=== PATIENT | male | born 1945 | race Caucasian/White ===

== ENCOUNTER 2016-05-28 11:32 | Emergency (ER) | payer MEDICARE, OTHER ==
[~2016-05-28] VITALS: Ht 175.3 cm; Wt 99.8 kg
[~2016-05-28 11:32] MED LIST: ACET65TA OR; AMLO10TAB PO; ASPI325T OR; HYDR25TA6 PO; LISI40TA PO; PERC5TAB8 OR; PERC7.5T8 OR; SIMV80TA PO; TYL325 PO; glucosamine PO; tramadol PO
[2016-05-28] MEDS ORDERED: SILD20TA11 PO (11:46)
[2016-05-28] MEDS ORDERED: B-12500T2 PO (11:46)
[2016-05-28] MEDS ORDERED: ATOR1TAB21 PO (11:46)
[2016-05-28] MEDS ORDERED: ASPI81TA85 PO (11:46)
[2016-05-28] MEDS ORDERED: VITA-176 PO (11:46)
[2016-05-28] MEDS ORDERED: ASPIRIN 81 MG CHEW TABLET PO ONE (12:15)
[2016-05-28] MEDS ORDERED: NS 500 ML IV ONE (12:15)
[2016-05-28 12:24] LABS: ANION GAP 6 MEQ/L (8-16); BLOOD UREA NITROGEN 25 MG/DL (7-18); CALCIUM LEVEL 9.4 MG/DL (8.8-10.2); CARBON DIOXIDE LEVEL 27 MEQ/L (21-32); CHLORIDE LEVEL 101 MEQ/L (98-107); FREE T4 1.11 NG/DL (0.76-1.46); GLOMERULAR FILTRATION RATE > 60.0 (>49); GLUCOSE, FASTING 107 MG/DL (80-110); POTASSIUM SERUM 4.5 MEQ/L (3.5-5.1); SODIUM LEVEL 134 MEQ/L (136-145)
[2016-05-28 12:29] LABS: BASO % 0.4 % (0.0-1.0); EOS # 0.1 K/mm3 (0.0-0.50); EOS % 1.3 % (0.0-3.0); LARGE UNSTAINED CELL # 0.1 K/mm3 (0.0-0.4); LARGE UNSTAINED CELL % 1.6 % (0.0-4.0); LYMPH # 1.1 K/mm3 (1.5-4.5); MEAN CORPUSCULAR HEMOGLOBIN 30.1 pg (27.0-33.0); MEAN CORPUSCULAR HGB CONC 32.7 g/dl (32.0-36.5); MEAN CORPUSCULAR VOLUME 91.9 fl (80.0-96.0); MONO # 0.4 K/mm3 (0.0-0.8); MONO % 6.1 % (0.0-5.0); NEUTROPHILS # 4.5 K/mm3 (1.8-7.7); NEUTROPHILS % 73.6 % (36.0-66.0); PLATELET COUNT, AUTOMATED 209 k/mm3 (150-450); RED CELL DISTRIBUTION WIDTH 13.2 % (11.5-14.5); WHITE BLOOD COUNT 6.1 K/mm3 (4.0-10.0)
--- NOTE | 2016-05-28 13:31 | REP ---
PORTABLE CHEST: AP portable view of the chest is performed and compared to a prior study of 12/03/2013. The heart is upper limits of normal in size. There is no acute infiltrate. Metallic prosthesis is seen in the proximal humerus bilaterally. IMPRESSION: No acute infiltrate. Signed by Shad Francisco MD 05/28/2016 04:40 P
[2016-05-28] MEDS ORDERED: ELIQ5TAB PO (14:57)
[2016-05-28] MEDS ORDERED: APIXABAN 5 MG TAB (ELIQUIS) PO ONE (15:00)
[2016-05-28 15:15] VITALS: BP 120/88
--- NOTE | 2016-05-29 21:34 | ECGEPIP ---
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
== END 2016-05-28 15:26 | disposition home or self-care (01) ==
LOC: M ED 12:41
DX: I48.91 Unspecified atrial fibrillation (principal); R06.02 Shortness of breath

== ENCOUNTER → 2017-05-06 | Outpatient (CLI) | payer MEDICARE ==
[2017-05-06 12:00] LABS: APPEARANCE, URINE CLEAR (CLEAR); BACTERIA, URINE AUTO NEGATIVE (NEGATIVE); BILIRUBIN, URINE AUTO NEGATIVE (NEGATIVE); BLOOD, URINE BLOOD NEGATIVE (NEGATIVE); COLOR, URINE STRAW (YELLOW); GLUCOSE, URINE (UA) AUTO NEGATIVE (NEGATIVE); KETONE, URINE AUTO NEGATIVE (NEGATIVE); LEUKOCYTE ESTERASE, URINE AUTO NEGATIVE (NEGATIVE); NITRITE, URINE AUTO NEGATIVE (NEGATIVE); PROTEIN, URINE AUTO NEGATIVE (NEGATIVE); RBC, URINE AUTO 0 /HPF (0-3); SQUAMOUS EPITHELIAL CELL UR AU 0 /HPF (0-6); UROBILINOGEN, URINE AUTO 0.2 mg/dL (0.0-2.0); WBC, URINE AUTO 0 /HPF (0-3)
[2017-05-06 12:05] LABS: HEMATOCRIT 44.7 % (42.0-52.0); HEMOGLOBIN 14.7 g/dl (14.0-18.0); MEAN CORPUSCULAR HEMOGLOBIN 29.5 pg (27.0-33.0); MEAN CORPUSCULAR HGB CONC 32.9 g/dl (32.0-36.5); MEAN CORPUSCULAR VOLUME 89.8 fl (80.0-96.0); PLATELET COUNT, AUTOMATED 207 10^3/uL (150-450); RED BLOOD COUNT 4.98 10^6/uL (4.30-6.10); RED CELL DISTRIBUTION WIDTH 13.3 % (11.5-14.5); WHITE BLOOD COUNT 6.8 10^3/uL (4.0-10.0)
[2017-05-06 12:11] LABS: INR 2.13; PROTHROMBIN TIME 24.6 SECONDS (12.4-14.5)
[2017-05-06 13:43] LABS: ALBUMIN 4.4 GM/DL (3.2-5.2); ALBUMIN/GLOBULIN RATIO 1.52 (1.00-1.93); ALKALINE PHOSPHATASE 71 U/L (45-117); ALT/SGPT 27 U/L (12-78); ANION GAP 9 MEQ/L (8-16); AST/SGOT 12 U/L (7-37); BILIRUBIN,TOTAL 0.6 MG/DL (0.2-1.0); BLOOD UREA NITROGEN 21 MG/DL (7-18); CALCIUM LEVEL 9.5 MG/DL (8.8-10.2); CARBON DIOXIDE LEVEL 26 MEQ/L (21-32); CHLORIDE LEVEL 102 MEQ/L (98-107); CREATININE FOR GFR 1.02 MG/DL (0.70-1.30); GLOMERULAR FILTRATION RATE > 60.0 (>49); GLUCOSE, FASTING 92 MG/DL (70-100); POTASSIUM SERUM 4.2 MEQ/L (3.5-5.1); SODIUM LEVEL 137 MEQ/L (136-145); TOTAL PROTEIN 7.3 GM/DL (6.4-8.2)
[2017-05-06 19:28] LABS: ERYTHROCYTE SEDIMENTATION RATE 3 mm/hr (0-20)
== END ==
LOC: M ADMPAT 10:27
DX: Z01.818 Encounter for other preprocedural examination (principal); M17.12 Unilateral primary osteoarthritis, left knee; I10 Essential (primary) hypertension; E78.00 Pure hypercholesterolemia, unspecified; I48.91 Unspecified atrial fibrillation; Z79.899 Other long term (current) drug therapy
CPT/HCPCS: 71046

== ENCOUNTER 2018-12-09 08:45 | Day surgery (SDC) | payer OTHER ==
[~2018-12-09] VITALS: Ht 172.7 cm; Wt 91.6 kg
[~2018-12-09 08:45] MED LIST changes: +ACET-839 PO; +AMLO10TA5 PO; +ASPI81TA85 PO; +ATOR1TAB21 PO; +B-12500T2 PO; +COUM1TAB17 PO; +DILT180C78 PO; +ELIQ5TAB PO; +LOVE0.8I SC; +NS 1,000 ML IV ONE; +PERC5TAB12 PO; +SILD20TA11 PO; +TYLE500T78 PO; +VITA-176 PO
[2018-12-09] MEDS ORDERED: PROPOFOL 200 MG/20 ML VIAL As Ordered ONE (09:51)
[2018-12-09] MEDS ORDERED: LIDOCAINE 2% INJ 100 MG/5 ML SDV (FOR ANES.) As Ordered ONE (09:51)
[2018-12-09] MEDS ORDERED: PHENYLephrine HCL 500 MCG/5 ML (100MCG/ML) SYRINGE (J2370) As Ordered ONE (10:30)
--- NOTE | 2018-12-09 10:53 | ROOR ---
Patient Name: Yosef Rueda Procedure Date: 12/09/2018 10:15 AM Date of : 1945 Age: 73 Room: [facility] Gender: Male Note Status: Finalized Procedure: Colonoscopy Indications: High risk colon cancer surveillance: Personal history of colonic polyps Providers: DO Sanaz Lind MD: [facility], Admin. Requesting Provider: Medicines: Propofol per Anesthesia Complications: No immediate complications. Procedure: Pre-Anesthesia Assessment: - Prior to the procedure, a History and Physical was performed, and patient medications and allergies were reviewed. The patient is competent. The risks and benefits of the procedure and the sedation options and risks were discussed with the patient. All questions were answered and informed consent was obtained. Patient identification and proposed procedure were verified by the physician, the nurse, the anesthesiologist and the r and d lab technician in the endoscopy suite. Mental Status Examination: alert and oriented. Airway Examination: normal oropharyngeal airway and neck mobility. Respiratory Examination: clear to auscultation. CV Examination: normal. Prophylactic Antibiotics: The patient does not require prophylactic antibiotics. Prior Anticoagulants: The patient has taken no previous anticoagulant or antiplatelet agents. ASA Grade Assessment: II - A patient with mild systemic disease. After reviewing the risks and benefits, the patient was deemed in satisfactory condition to undergo the procedure. The anesthesia plan was to use monitored anesthesia care (MAC). Immediately prior to administration of medications, the patient was re-assessed for adequacy to receive sedatives. The heart rate, respiratory rate, oxygen saturations, blood pressure, adequacy of pulmonary ventilation, and response to care were monitored throughout the procedure. The physical status of the patient was re-assessed after the procedure. The Colonoscope was introduced through the anus and advanced to the cecum, identified by appendiceal orifice and ileocecal valve. The colonoscopy was performed without difficulty. The patient tolerated the procedure well. Findings: A few small and large-mouthed diverticula were found in the sigmoid colon. Two hyperplastic polyps were found in the descending colon and transverse colon. The polyps were less than 5 mm in size. These polyps were removed with a hot snare. Resection and retrieval were complete. Estimated blood loss was minimal. Non-bleeding internal hemorrhoids were found during retroflexion. The hemorrhoids were small and Grade I (internal hemorrhoids that do not prolapse). The exam was otherwise without abnormality. Impression: - Diverticulosis in the sigmoid colon. - Two less than 5 mm polyps in the descending colon and in the transverse colon, removed with a hot snare. Resected and retrieved. - Non-bleeding internal hemorrhoids. - The examination was otherwise normal. Recommendation: - Patient has a contact number available for emergencies. The signs and symptoms of potential delayed complications were discussed with the patient. Return to normal activities tomorrow. Written discharge instructions were provided to the patient. - Await pathology results. - Repeat colonoscopy in 5-10 years for surveillance based on pathology results. - Return to my office as previously scheduled. Shad Dalton DO 12/09/2018 10:53:28 AM Electronically signed by Shad Dalton DO Number of Addenda: 0 Note Initiated On: 12/09/2018 10:15 AM Estimated Blood Loss: Estimated blood loss was minimal.
[2018-12-09 11:24] VITALS: BP 117/86
== END 2018-12-09 11:26 | disposition home or self-care (01) ==
LOC: M OPP 08:45
PROVIDERS: ATTEND Surgery
DX: Z12.11 Encounter for screening for malignant neoplasm of colon (principal); Z86.010 Personal history of colon polyps; K64.0 First degree hemorrhoids; D12.4 Benign neoplasm of descending colon; D12.3 Benign neoplasm of transverse colon; K57.30 Diverticulosis of large intestine without perforation or abscess without bleeding; I48.91 Unspecified atrial fibrillation; G47.30 Sleep apnea, unspecified; Z79.899 Other long term (current) drug therapy; Z87.891 Personal history of nicotine dependence
CPT/HCPCS: 45385; 88305; J2370

== ENCOUNTER → 2018-12-30 | Outpatient (CLI) | payer OTHER ==
[~2018-12-30] MED LIST changes: -NS 1,000 ML IV ONE
--- NOTE | 2018-12-31 19:35 | SLEEPCENT ---
DATE OF PROCEDURE: 12/30/2018 ORDERED BY: PILLO Negron Nocturnal polysomnography was performed for evaluation of sleep physiology. 8 hours and 48 minutes of data were reviewed. There were 331.5 minutes of sleep identified. Sleep latency was prolonged at 74.5 minutes. Rapid eye movement (REM) latency was short at 48 minutes. Sleep architecture showed poor progression early in the study but four rapid eye movement (REM) cycles were seen throughout the test. Patient's electrocardiogram showed atrial fibrillation with an average heart rate of 70 beats per minute. EEG showed some coarsening in background, no focal events. Normal waveforms for awake and sleep. There were 97 respiratory events identified of 10 seconds in duration or greater during the early portion of the study for an apnea-hypopnea index of 17.6. Having clearly established the presence of obstructive sleep apnea syndrome early in testing, the study was stopped for the application of pressure therapy. The patient was therefore fit with a ResMed AirFit F30 full face mask of medium size, 4 cm of water pressure were applied to the circuit and the lights were again extinguished. Throughout the remaining hours of testing, titration was performed to an optimal pressure of 15 with which the patient slept through REM sleep without oxygen desaturation. There was also some limb activity noted in the EMG leads but limb movement arousals were few. IMPRESSION: Obstructive sleep apnea syndrome (G47.33). Apnea-hypopnea index 17.6. RECOMMENDATIONS: Initiation of pressure therapy at 15 cm of water.
== END ==
LOC: M SLEEP 19:40
PROVIDERS: ATTEND Physician Assistant
DX: G47.33 Obstructive sleep apnea (adult) (pediatric) (principal)

== ENCOUNTER → 2021-04-25 | Outpatient (CLI) | payer OTHER ==
[~2021-04-25] MED LIST changes: -AMLO10TA5 PO; +AMLO1TAB25 PO; -ASPI81TA85 PO; +ASPI81TA86 PO; +LISI40TA4 PO
== END ==
LOC: M RAD 12:34
PROVIDERS: ATTEND Nurse Practitioner Primary Care
DX: F17.211 Nicotine dependence, cigarettes, in remission (principal); R91.8 Other nonspecific abnormal finding of lung field

== ENCOUNTER 2021-09-17 09:16 | Emergency (ER) | payer OTHER ==
[~2021-09-17] VITALS: Ht 175.3 cm; Wt 93.5 kg
[2021-09-17 09:16] VITALS: BP 158/92
[2021-09-17] MEDS ORDERED: CEPH500C PO (10:59)
== END 2021-09-17 11:11 | disposition home or self-care (01) ==
LOC: M ED 09:16
DX: L03.115 Cellulitis of right lower limb (principal); M79.604 Pain in right leg; I48.91 Unspecified atrial fibrillation; I10 Essential (primary) hypertension; Z79.01 Long term (current) use of anticoagulants; Z79.899 Other long term (current) drug therapy; Z98.890 Other specified postprocedural states

== ENCOUNTER 2023-04-07 10:15 | Day surgery (SDC) | payer MEDICARE, OTHER ==
[~2023-04-07] VITALS: Ht 170.2 cm; Wt 94.6 kg
[~2023-04-07 10:15] MED LIST changes: +CEPH500C PO; +CVS2500C PO; +LR 1,000 ML IV SCH; +NOXI1TAB PO; +WARF-18 PO; +WARF-23 PO
[2023-04-07] MEDS: PHENYLEPHRINE 2.5% OPHTH SOL 2ML OS SCH (11:14)
[2023-04-07] MEDS: TETRACAINE 0.5% OPHTH SOLN 4ML OS SCH (11:14)
[2023-04-07] MEDS: FLURBIPROFEN 0.03% OPHTH SOLN 2.5 ML OS SCH (11:14)
[2023-04-07] MEDS: CYCLOPENTOLATE 1% OPHTH SOLN 2ML BTL OS SCH (11:14)
[2023-04-07] MEDS ORDERED: MIDAZOLAM 5MG/ML 1ML VIAL As Ordered ONE (12:29)
[2023-04-07] MEDS: LIDOCAINE 1% SDV 5ML VIAL As Ordered ONE (12:54)
[2023-04-07] MEDS: CEFUROXIME 1MG/0.1ML INTRACAMERAL INJ As Ordered ONE (12:56)
[2023-04-07 13:15] VITALS: BP 117/63; TEMP 96.8; O2SAT 95
== END 2023-04-07 13:34 | disposition home or self-care (01) ==
LOC: M SDC 10:15
PROVIDERS: ATTEND Ophthalmology
DX: H25.12 Age-related nuclear cataract, left eye (principal); I10 Essential (primary) hypertension; E78.00 Pure hypercholesterolemia, unspecified; I48.91 Unspecified atrial fibrillation; I25.2 Old myocardial infarction; G47.30 Sleep apnea, unspecified; Z79.01 Long term (current) use of anticoagulants; Z79.899 Other long term (current) drug therapy
CPT/HCPCS: 66984; J0697; J2250; V2632

== ENCOUNTER 2023-05-19 09:06 | Day surgery (SDC) | payer OTHER, MEDICARE ==
[~2023-05-19] VITALS: Ht 170.2 cm; Wt 94.2 kg
[~2023-05-19 09:06] MED LIST changes: +MIDAZOLAM INJ 2MG/2ML VIAL As Ordered ONE; +fentaNYL 100 MCG/2 ML INJECTION As Ordered ONE
[2023-05-19] MEDS: ATROPINE SULFATE 1% OPHTH SOLN 2ML BTL OD SCH (11:18)
[2023-05-19] MEDS: TETRACAINE 0.5% OPHTH SOLN 4ML OD SCH (11:18)
[2023-05-19] MEDS: FLURBIPROFEN 0.03% OPHTH SOLN 2.5 ML OD SCH (11:19)
[2023-05-19] MEDS: PHENYLEPHRINE 2.5% OPHTH SOL 2ML OD SCH (11:19)
[2023-05-19] MEDS ORDERED: POVIDONE-IODINE 5% OPHTH PREP SOL 30ML As Ordered ONE (13:01)
[2023-05-19] MEDS: LIDOCAINE 1% SDV 5ML VIAL As Ordered ONE (13:15)
[2023-05-19] MEDS: CEFUROXIME 1MG/0.1ML INTRACAMERAL INJ As Ordered ONE (13:15)
[2023-05-19 13:30] VITALS: BP 156/96; TEMP 97; O2SAT 97
== END 2023-05-19 13:45 | disposition home or self-care (01) ==
LOC: M SDC 09:06
PROVIDERS: ATTEND Ophthalmology
DX: H25.11 Age-related nuclear cataract, right eye (principal); I48.91 Unspecified atrial fibrillation; I10 Essential (primary) hypertension; E78.00 Pure hypercholesterolemia, unspecified; G47.30 Sleep apnea, unspecified; Z79.899 Other long term (current) drug therapy; Z79.01 Long term (current) use of anticoagulants; Z87.891 Personal history of nicotine dependence; Z98.42 Cataract extraction status, left eye
CPT/HCPCS: 66984; J0697; J2250; J3010; V2632

== ENCOUNTER → 2024-01-28 | Outpatient (CLI) | payer MEDICARE, OTHER ==
[~2024-01-28] MED LIST changes: -LR 1,000 ML IV SCH; -MIDAZOLAM INJ 2MG/2ML VIAL As Ordered ONE; -fentaNYL 100 MCG/2 ML INJECTION As Ordered ONE
== END ==
LOC: M PLALAB 10:57
PROVIDERS: ATTEND Nurse Practitioner Family
DX: N40.1 Benign prostatic hyperplasia with lower urinary tract symptoms (principal); Z12.5 Encounter for screening for malignant neoplasm of prostate
CPT/HCPCS: 36415; G0103

== ENCOUNTER → 2024-10-26 | Outpatient (CLI) | payer MEDICARE, OTHER ==
[~2024-10-26] MED LIST changes: +LISI40TA10 PO; -LISI40TA4 PO
== END ==
LOC: M RAD 12:04
PROVIDERS: ATTEND Nurse Practitioner Family
DX: N50.812 Left testicular pain (principal); N50.3 Cyst of epididymis

== ENCOUNTER → 2025-01-31 | Outpatient (CLI) | payer MEDICARE, OTHER ==
[~2025-01-31] MED LIST changes: -SILD20TA11 PO; +SILD20TA64 PO
== END ==
LOC: M PLALAB 12:23
PROVIDERS: ATTEND Nurse Practitioner Family
DX: Z12.5 Encounter for screening for malignant neoplasm of prostate (principal)
CPT/HCPCS: 36415; G0103